=== PATIENT | female | born 1970 | race Caucasian/White ===

== ENCOUNTER 2017-06-06 10:36 | Emergency (ER) | payer MEDICARE, MEDICAID ==
[2017-06-06 10:46] VITALS: BP 124/86
[2017-06-06] MEDS ORDERED: DIAZEPAM 5 MG TABLET PO ONE (11:37)
--- NOTE | 2017-06-06 11:39 | ER Document Report ---
ED Medical Screen (RME) - General Chief Complaint: Neck Problem Stated Complaint: NECK PAIN Time Seen by Provider: 06/06/17 11:27 Notes: 46-year-old female past medical history "thyroid surgery" here with complaints of neck tightness swelling and pain ongoing for the past few days. She does not know what may have triggered these symptoms but does report that she had numerous lymph nodes removed near her thyroid in the past. She also has a 100 pound autistic son at home and does lift him daily for his care but is not sure if she may have sprained or strained something. EXAM Healed surgical incision seen on the anterior neck Mild tenderness to palpation of the anterior neck with no appreciable fluctuance TRAVEL OUTSIDE OF THE [place] IN LAST 30 DAYS: No - Related Data Allergies/Adverse Reactions: No Known Allergies Allergy (Verified 06/06/17 10:37) Home Medications: Current Home Medications Allopurinol [Zyloprim] 300 mg PO BID 06/06/17 [History] Ascorbic Acid [Vitamin C 500 mg Tablet] 500 mg PO DAILY 06/06/17 [History] Cyanocobalamin (Vitamin B-12) [B-12] 1,000 mcg PO DAILY 06/06/17 [History] Hydrochlorothiazide 25 mg PO DAILY 06/06/17 [History] Ibuprofen 800 mg PO Q6H 06/06/17 [History] Levothyroxine Sodium [Synthroid] 300 mcg PO DAILY 06/06/17 [History] Pantoprazole Sodium 40 mg PO DAILY 06/06/17 [History] Sucralfate [Carafate 1 gm Tablet] 1 gm PO QID 06/06/17 [History] Topiramate 100 mg PO BID 06/06/17 [History] Past Medical History - Social History Chew tobacco use (# tins/day): No Frequency of alcohol use: None Drug Abuse: None Renal/ Medical History: Denies: Hx Peritoneal Dialysis Physical Exam - Vital signs Vitals: Temp Pulse Resp BP Pulse Ox 98.5 F 71 20 124/86 H 97 06/06/17 10:43 06/06/17 10:43 06/06/17 10:43 06/06/17 10:43 06/06/17 10:43 Course - Vital Signs Vital signs: Temp Pulse Resp BP Pulse Ox 98.5 F 71 20 124/86 H 97 06/06/17 10:43 06/06/17 10:43 06/06/17 10:43 06/06/17 10:43 06/06/17 10:43
[2017-06-06 12:08] LABS: APPEARANCE,URINE CLEAR; BILIRUBIN,URINE NEGATIVE (NEGATIVE); COLOR,URINE YELLOW; GLUCOSE, URINE NEGATIVE (NEGATIVE); KETONES,URINE NEGATIVE (NEGATIVE); LEUKOCYTE ESTERASE,URINE NEGATIVE (NEGATIVE); NITRITE,URINE NEGATIVE (NEGATIVE); PROTEIN,URINE NEGATIVE (NEGATIVE); URINE SPECIFIC GRAVITY 1.015; UROBILINOGEN,URINE NEGATIVE mg/dL (<2.0)
[2017-06-06 12:14] LABS: ABSOLUTE LYMPHOCYTES (AUTO) 1.2 10^3/uL (0.5-4.7); ABSOLUTE MONOCYTES (AUTO) 0.3 10^3/uL (0.1-1.4); ABSOLUTE NEUT (AUTO) 2.3 10^3/uL (1.7-8.2); BASOPHILS % (AUTO) 0.9 % (0-2); HEMATOCRIT 37.6 % (36.0-47.0); HEMOGLOBIN 12.8 g/dL (12.0-15.5); LYMPHOCYTES % (AUTO) 31.9 % (13-45); MEAN CORPUSCULAR HEMOGLOBIN 31.2 pg (27.0-33.4); MEAN CORPUSCULAR HGB CONC 33.9 g/dL (32.0-36.0); MEAN CORPUSCULAR VOLUME 92 fl (80-97); MONOCYTES % (AUTO) 6.8 % (3-13); PLATELET COUNT 184 10^3/uL (150-450); RED BLOOD COUNT 4.09 10^6/uL (3.72-5.28); RED CELL DISTRIBUTION WIDTH 14.6 % (11.5-14.0); SEGMENTED NEUTROPHILS % (AUTO) 59.4 % (42-78); TOTAL CELLS COUNTED % (AUTO) 100 %; WHITE BLOOD COUNT 3.9 10^3/uL (4.0-10.5)
[2017-06-06 12:39] LABS: ANION GAP 11 (5-19); BLOOD UREA NITROGEN 11 mg/dL (7-20); CALCIUM 9.4 mg/dL (8.4-10.2); CARBON DIOXIDE 25 mmol/L (22-30); CHLORIDE 108 mmol/L (98-107); GLUCOSE 97 mg/dL (75-110); POTASSIUM 3.7 mmol/L (3.6-5.0); SODIUM 144.4 mmol/L (137-145)
--- NOTE | 2017-06-06 14:34 | RADIOLOGY REPORT (SQ) ---
EXAM DESCRIPTION: CTA NECK COMPLETED DATE/TIME: 06/06/2017 2:17 pm REASON FOR STUDY: neck pain/swelling; hx of thyroid surgery COMPARISON: None. TECHNIQUE: Axial dynamic scanning technique with dynamic contrast enhancement through the extra-line assembler aircraft nial carotid and vertebral arteries. Multiplanar reconstruction. 3-D MIPS and Volume-rendered imag es acquired at the workstation and saved to PACS. Images are reviewed in soft tissue, bone, lung w indows. All CT scanners at this facility use dose modulation, iterative reconstruction, and/or weight based d osing when appropriate to reduce radiation dose to as low as reasonably achievable (ALARA). [facility]: Dose Right [facility]: CareDose [facility]: Dose Right [facility]: Teradose 4D [facility]: UTOPY CONTRAST TYPE AND DOSE: contrast/concentration: Isovue 370.00 mg/ml; Total Contrast Delivered: 70.0 ml; Total Saline Delivered: 50.0 ml RENAL FUNCTION: Creatinine 1.0 LIMITATIONS: None. FINDINGS: AORTIC ARCH: Normal three-vessel origin. Bilateral subclavian arteries are patent. No d issection. RIGHT CAROTIDS: Patent common, internal and external carotid arteries without suggestion of significa nt stenosis or irregular plaque. No dissection. RIGHT VERTEBRAL: Patent. No dissection. LEFT CAROTIDS: Patent common, internal and external carotid arteries without suggestion of significan t stenosis or irregular plaque. No dissection. LEFT VERTEBRAL: Patent. No dissection. Neck soft tissue imaging demonstrates that the airway is widely. Paranasal sinuses and mastoid air c ells are clear. No pharyngeal tonsillar or tongue base mass. Laryngeal structures are unremarkable. Patient appears to be post thyroidectomy. On axial image 24, and coronal image 40, a 3.6 x 3.6 by 9 mm nodule is present which could be parathyroid gland or residual thyroid tissue. Lung apices are clear. No cervical adenopathy. No acute bony changes. No significant central or foraminal stenosis. OTHER: 3-D reconstructions confirm findings. IMPRESSION: 3.6 x 3.6 x 9 mm nodule in the left thyroid bed, could be a parathyroid gland or regrowt h with minimal thyroid tissue. No stenosis in the cervical carotid for cervical vertebral elements. COMMENT: Quality ID #195: Measurements of distal internal carotid diameter were used as the denomina tor for stenosis measurement. TECHNICAL DOCUMENTATION: JOB ID: [id number] Quality ID # 436: Final reports with documentation of one or more dose reduction techniques (e.g., Au tomated exposure control, adjustment of the mA and/or kV according to patient size, use of iterative reconstruction technique) 2010 [employer]- All Rights Reserved
--- NOTE | 2017-06-06 14:38 | ER Document Report ---
ED General - General Chief Complaint: Neck Problem Stated Complaint: NECK PAIN Time Seen by Provider: 06/06/17 11:27 Mode of Arrival: Ambulatory Information source: Patient TRAVEL OUTSIDE OF THE [place] IN LAST 30 DAYS: No - HPI Patient complains to provider of: Neck pain Onset: Other - Patient states 1 week ago she developed left-sided neck pain that has worsened over time. Her massage the area and it has gotten worse since then. Onset/Duration: Persistent, Worse Quality of pain: Achy, Dull Severity: Severe Pain Level: 5 Associated symptoms: None Exacerbated by: Movement Relieved by: Denies Similar symptoms previously: No Recently seen / treated by doctor: No Notes: this 46-year-old female presents emergency department complaining of abrupt left neck pain that began approximately 1 week ago. She denies any trauma to the area. She states she does have 100 pound autistic son which he lifts on a daily basis. She has also recently moved here from [place] and so she has been doing a lot of strenuous work. She states in 2011 she had right shoulder surgery as well as total thyroidectomy secondary to cancer. She states she has one node there that her doctors are watching. Patient also states that her mother in December of pancreatic cancer in her father in October. She also stated she has bipolar disease and is not her medications because they affected her heart. She is in the midst of getting a primary medical doctor, pain management doctor for her arthritis and back pain, and psychiatrist for her bipolar. - Related Data Allergies/Adverse Reactions: No Known Allergies Allergy (Verified 06/06/17 10:37) Home Medications: Current Home Medications Allopurinol [Zyloprim] 300 mg PO BID 06/06/17 [History] Ascorbic Acid [Vitamin C 500 mg Tablet] 500 mg PO DAILY 06/06/17 [History] Cyanocobalamin (Vitamin B-12) [B-12] 1,000 mcg PO DAILY 06/06/17 [History] Hydrochlorothiazide 25 mg PO DAILY 06/06/17 [History] Hydroxyzine Pamoate [Vistaril 25 mg Capsule] 25 mg PO DAILY 06/06/17 [History] Ibuprofen 800 mg PO Q6H 06/06/17 [History] Levothyroxine Sodium [Synthroid] 300 mcg PO DAILY 06/06/17 [History] Pantoprazole Sodium 40 mg PO DAILY 06/06/17 [History] Ranitidine HCl [Zantac 150 mg Tablet] 150 mg PO BID 06/06/17 [History] Sucralfate [Carafate 1 gm Tablet] 1 gm PO QID 06/06/17 [History] Topiramate 100 mg PO BID 06/06/17 [History] Past Medical History - General Information source: Patient - Social History Smoking Status: Never Smoker Chew tobacco use (# tins/day): No Frequency of alcohol use: None Drug Abuse: None Lives with: Family Family History: Reviewed & Not Pertinent Patient has suicidal ideation: No Patient has homicidal ideation: No - Past Medical History Cardiac Medical History: Reports: None Pulmonary Medical History: Reports: None EENT Medical History: Reports: None Neurological Medical History: Reports: None Endocrine Medical History: Reports: None Renal/ Medical History: Reports: None. Denies: Hx Peritoneal Dialysis Malignancy Medical History: Reports: Other - Thyroid cancer GI Medical History: Reports: None Musculoskeltal Medical History: Reports Hx Arthritis, Reports Hx Gout, Reports Other - Gout Skin Medical History: Reports None Psychiatric Medical History: Reports: Hx Bipolar Disorder Traumatic Medical History: Reports: None Infectious Medical History: Reports: None Past Surgical History: Reports: Hx Orthopedic Surgery - Shoulder Review of Systems - Review of Systems Constitutional: No symptoms reported EENT: No symptoms reported Cardiovascular: No symptoms reported Respiratory: No symptoms reported Gastrointestinal: No symptoms reported Genitourinary: No symptoms reported Female Genitourinary: No symptoms reported Musculoskeletal: Back pain, Joint pain, Muscle pain, Muscle stiffness, Neck pain Skin: No symptoms reported Hematologic/Lymphatic: No symptoms reported Neurological/Psychological: Depression, Anxiety Physical Exam - Vital signs Vitals: Temp Pulse Resp BP Pulse Ox 98.5 F 71 20 124/86 H 97 06/06/17 10:43 06/06/17 10:43 06/06/17 10:43 06/06/17 10:43 06/06/17 10:43 Interpretation: Normal - Notes Notes: PHYSICAL EXAMINATION: GENERAL: Well-nourished. Teary-eyed mildly anxious. HEAD: Atraumatic, normocephalic. EYES: Pupils equal round and reactive to light, extraocular movements intact, conjunctiva are normal. ENT: Nares patent, oropharynx clear without exudates. Moist mucous membranes. NECK: Patient has incisional scar to anterior neck area. She does have muscle spasm to her left paracervical as well as scalene muscle. No lymphadenopathy or carotid bruits present. No masses appreciated. Patient has increased pain to her left cervical area with right rotation as well as flexion of her neck. She has no pain with palpation of the bony cervical spine. LUNGS: Breath sounds clear to auscultation bilaterally and equal. No wheezes rales or rhonchi. HEART: Regular rate and rhythm without murmurs ABDOMEN: Soft, nontender, nondistended abdomen. No guarding, no rebound. No masses appreciated. Female : deferred Musculoskeletal: Normal range of motion, no pitting or edema. No cyanosis. NEUROLOGICAL: Cranial nerves grossly intact. Normal speech, normal gait. Normal sensory, motor exams PSYCH: Anxious. Emotional the loss of her parents this past summer. Patient makes good eye contact. She has good insight. She is no homicidal suicidal ideations. SKIN: Warm, Dry, normal turgor, no rashes or lesions noted. Course - Re-evaluation Re-evalutation: 06/06/17 15:01 I did go back to the patient I did go over the results of her CAT scan. I did give her copy of the CT results. She is aware that she needs to establish a primary medical doctor for follow-up. She also is getting a psychiatrist as well as a pain management doctor. Patient will be discharged home with anti- inflammatories and muscle relaxants. I also told her to use heat if it makes her feel better as well as Biofreeze or similar product. She is used Biofreeze in the past that she is aware of what I am talking about. - Vital Signs Vital signs: Temp Pulse Resp BP Pulse Ox 98.5 F 71 20 124/86 H 97 06/06/17 10:43 06/06/17 10:43 06/06/17 10:43 06/06/17 10:43 06/06/17 10:43 - Laboratory Result Diagrams: 06/06/17 11:59 06/06/17 11:59 Laboratory results interpreted by me: 06/06/17 06/06/17 11:59 11:59 WBC 3.9 L RDW 14.6 H Chloride 108 H - Diagnostic Test Radiology results interpreted by me: 06/06/17 14:45 DESCRIPTION: CTA NECK COMPLETED DATE/TIME: 06/06/2017 2:17 pm REASON FOR STUDY: neck pain/swelling; hx of thyroid surgery COMPARISON: None. TECHNIQUE: Axial dynamic scanning technique with dynamic contrast enhancement through the extra- cranial carotid and vertebral arteries. Multiplanar reconstruction. 3-D MIPS and Volume-rendered images acquired at the workstation and saved to PACS. Images are reviewed in soft tissue, bone, lung windows. All CT scanners at this facility use dose modulation, iterative reconstruction, and/or weight based dosing when appropriate to reduce radiation dose to as low as reasonably achievable (ALARA). [facility]: Dose Right [facility]: CareDose [facility]: Dose Right [facility]: Teradose 4D [facility]: [employer] CONTRAST TYPE AND DOSE: contrast/concentration: Isovue 370.00 mg/ml; Total Contrast Delivered: 70.0 ml; Total Saline Delivered: 50.0 ml RENAL FUNCTION: Creatinine 1.0 LIMITATIONS: None. FINDINGS: AORTIC ARCH: Normal three-vessel origin. Bilateral subclavian arteries are patent. No dissection. RIGHT CAROTIDS: Patent common, internal and external carotid arteries without suggestion of significant stenosis or irregular plaque. No dissection. RIGHT VERTEBRAL: Patent. No dissection. LEFT CAROTIDS: Patent common, internal and external carotid arteries without suggestion of significant stenosis or irregular plaque. No dissection. LEFT VERTEBRAL: Patent. No dissection. Neck soft tissue imaging demonstrates that the airway is widely. Paranasal sinuses and mastoid air cells are clear. No pharyngeal tonsillar or tongue base mass. Laryngeal structures are unremarkable. Patient appears to be post thyroidectomy. On axial image 24, and coronal image 40, a 3.6 x 3.6 by 9 mm nodule is present which could be parathyroid gland or residual thyroid tissue. Lung apices are clear. No cervical adenopathy. No acute bony changes. No significant central or foraminal stenosis. OTHER: 3-D reconstructions confirm findings. IMPRESSION: 3.6 x 3.6 x 9 mm nodule in the left thyroid bed, could be a parathyroid gland or regrowth with minimal thyroid tissue. No stenosis in the cervical carotid for cervical vertebral elements. COMMENT: Quality ID #195: Measurements of distal internal carotid diameter were used as the denominator for stenosis measurement. TECHNICAL DOCUMENTATION: JOB ID: [id number] Quality ID # 436: Final reports with documentation of one or more dose reduction techniques (e.g., Automated exposure control, adjustment of the mA and/or kV according to patient size, use of iterative reconstruction technique) 2010 [employer]- All Rights Reserved Dictated by: SAMMY HOBBS MD [id number] CC: ULICES PHILLIPS MD > <Electronically signed by SAMMY HOBBS MD in OV> 06/06/17 1439 Embedded Images (not for diagnostic purposes) Signs and Symptoms: ITS.REASON^neck pain/swelling; hx of thyroid surgery History: ITS.REASON^neck pain/swelling; hx of thyroid surgery Discharge - Discharge Clinical Impression: Cervical myofascial strain, Thyroid nodule Condition: Stable Disposition: HOME, SELF-CARE Instructions: Neck Injury (Cervical Strain) ([facility]) Additional Instructions: As I discussed with you your CT demonstrated a nodule in the neck area. You have told me that your doctors in [place] or following a thyroid nodule. Please establish a primary medical doctor in continue follow-up. Prescriptions: Diazepam [Valium 5 mg Tablet] 5 mg PO QIDP PRN #15 tablet PRN Reason: Naproxen [Naprosyn] 500 mg PO BID 5 Days #10 tablet
[2017-06-06] MEDS ORDERED: KETOROLAC TROMETHAMINE INJ/PF 30 MG/1 ML SDV IV ONE (14:47)
== END 2017-06-06 15:35 | disposition home or self-care (01) ==
LOC: ER 10:36
DX: S16.1XXA Strain of muscle, fascia and tendon at neck level, initial encounter (principal); E04.1 Nontoxic single thyroid nodule; M54.2 Cervicalgia; X50.0XXA Overexertion from strenuous movement or load, initial encounter; Z79.899 Other long term (current) drug therapy
CPT/HCPCS: 99284; 96374; 36415; 85025; 80048; 81001; 70498; A9270; J1885